=== PATIENT | male | born 1965 | race Caucasian/White ===

== ENCOUNTER 2017-10-18 16:30 | Inpatient (IN) | payer BC ==
[2017-10-18] MEDS ORDERED: ASPIRIN PO SCH (18:00)
[2017-10-18 18:59] LABS: BASOPHILS % (AUTO) 0.3 % (0.2-1.0); EOSINOPHILS # (AUTO) 0.1 x10^3/uL (0.0-0.2); EOSINOPHILS % (AUTO) 0.8 % (0.9-2.9); HEMATOCRIT 43.6 % (42.0-54.0); HEMOGLOBIN 14.9 g/dL (13.5-18.0); LYMPHOCYTES # (AUTO) 1.3 X10^3/uL (1.3-2.9); MEAN CORPUSCULAR HEMOGLOBIN 29.5 pg (27.0-34.0); MEAN CORPUSCULAR HGB CONC 34.2 g/dL (33.0-35.0); MEAN CORPUSCULAR VOLUME 86.4 fL (80.0-100.0); MEAN PLATELET VOLUME 7.1 fL (7.4-11.0); MONOCYTES # (AUTO) 0.5 x10^3/uL (0.3-0.8); MONOCYTES % (AUTO) 3.8 % (0.0-13.0); NEUTROPHILS # (AUTO) 11.4 x10^3/uL (2.2-4.8); NEUTROPHILS % (AUTO) 85.1 % (42.0-75.0); PLATELET COUNT 433 X10^3/uL (150.0-450.0); RED BLOOD COUNT 5.05 X10^6/uL (4.7-6.0); RED CELL DISTRIBUTION WIDTH 13.9 % (11.6-16.5); WHITE BLOOD COUNT 13.4 X10^3/uL (3.6-10.0)
[2017-10-18 19:06] LABS: ABG BASE EXCESS 0.8 mmol/L (-2.0-2.0); ABG HCO3 24.2 mmol/L (22-26)
[2017-10-18 19:06] LABS: BLOOD UREA NITROGEN 12 mg/dL (7-18); CHLORIDE 105 mmol/L (98-107); CREATININE 1.29 mg/dL (0.70-1.30); SODIUM 144 mmol/L (136-145); eGFR BLACK RACES > 60 (>60); eGFR NON BLACK RACES > 60 (>60)
[2017-10-18 19:11] LABS: ALANINE AMINOTRANSFERASE 70 Units/L (12-78); ALKALINE PHOSPHATASE 77 Units/L (46-116); ASPARTATE AMINO TRANSFERASE 45 Units/L (15-37); MAGNESIUM 1.9 mg/dL (1.7-2.9)
[2017-10-18 19:18] VITALS: BMI 32.1
[2017-10-18] MEDS ORDERED: POTASSIUM CHLORIDE LIQ 20 MEQ UDC PO PRN (19:20)
[2017-10-18] MEDS ORDERED: K-LYTE EFFERVESCENT PO PRN (19:20)
[2017-10-18] MEDS ORDERED: K-RIDER 10 MEQ/NS 100 ML 10 MEQ/100 ML BAG IV PRN (19:20)
[2017-10-18] MEDS ORDERED: POTASSIUM CHL 40 MEQ/NS 0.45% 500 ML IV PRN (19:20)
[2017-10-18] MEDS ORDERED: MAG-OX TAB PO PRN (19:20)
[2017-10-18] MEDS ORDERED: MAGNESIUM SULFATE 1 GM/100 mL PREMIX 1 GM/100 ML BAG IV PRN (19:20)
[2017-10-18 19:40] LABS: CKMB % 0.6 % (<4); CREATINE KINASE MB 3.1 ng/mL (0-4.0); TROPONIN I 0.18 ng/mL (0-1.5)
[2017-10-18] MEDS ORDERED: NS 1/2 1000 ML IV 1,000 ML IV SCH (20:00)
[2017-10-18] MEDS ORDERED: METHOCARBAMOL PO PRN (20:05)
--- NOTE | 2017-10-18 20:07 | RAD ---
PA and lateral chest. Indication: Productive cough with fever Comparison: None available. Findings: There is moderate increased bilateral peribronchial thickening and interstitial opacities m ost severely affecting the central lungs, given reported history of fever and productive cough this l ikely represents a interstitial pneumonitis/atypical pneumonia. Interstitial edema can have a similar appearance however felt less likely given reported patient history. No pleural effusion or pneumothorax. No acute osseous abnormality. Heart size is borderline enlarged. Impression: See above. Reported By:
[2017-10-18] MEDS ORDERED: LR 1000 ML IV 1,000 ML IV SCH (20:15)
[2017-10-18] MEDS ORDERED: LASIX IVP ONE (20:40)
[2017-10-18] MEDS ORDERED: MIRALAX POWDER (1 DOSE 17GM) PO PRN (20:47)
[2017-10-18] MEDS ORDERED: METFORMIN HCL 750 MG PO SCH (21:00)
[2017-10-18] MEDS ORDERED: TESTOSTERONE TOP SCH (21:00)
[2017-10-18] MEDS: LEVAQUIN PREMIX IV 750 MG 750 MG/150 ML BAG IV SCH (21:19)
[2017-10-18] MEDS: TOPAMAX TAB 100 MG PO SCH (21:19)
[2017-10-18] MEDS: COREG TAB 12.5 MG PO SCH (21:19)
[2017-10-18] MEDS: COLACE CAP 100 MG PO SCH (21:20)
[2017-10-18] MEDS: ZOSYN VIAL 4.5 GM 4.5 GM in NS 100 ML IV + SPIKE MINIBAG* 100 ML IV SCH (21:20)
[2017-10-18] MEDS: JANUVIA PO SCH (21:23)
[2017-10-18] MEDS: NORVASC TAB 10 MG PO SCH (21:26)
[2017-10-18] MEDS: FLONASE NASAL SPRAY ENOSTRIL SCH (21:31)
[2017-10-18] MEDS: PULMICORT NEB TX 0.5 MG NEB SCH (21:50)
[2017-10-18] MEDS: DUONEB 0.5 MG/3 MG NEB SCH (21:50)
[2017-10-18] MEDS ORDERED: TUSSIONEX PENNKINETIC SUSP PO PRN (22:01)
[2017-10-18] MEDS: POTASSIUM CHL 60 MEQ/NS 0.45% 500 ML IV PRN (23:00)
[2017-10-19 00:52] LABS: CKMB % 0.5 % (<4); CREATINE KINASE MB 2.4 ng/mL (0-4.0); TROPONIN I 0.21 ng/mL (0-1.5)
[2017-10-19] MEDS: ZOSYN VIAL 4.5 GM 4.5 GM in NS 100 ML IV + SPIKE MINIBAG* 100 ML IV SCH ×3 (00:54→14:04)
[2017-10-19] MEDS: DUONEB 0.5 MG/3 MG NEB SCH ×3 (01:00→08:54)
[2017-10-19 06:49] LABS: CKMB % 0.6 % (<4); CREATINE KINASE MB 2.5 ng/mL (0-4.0); TROPONIN I 0.18 ng/mL (0-1.5)
[2017-10-19 06:55] LABS: CHOL/HDL RATIO 6.3 (0.0-5.0)
[2017-10-19] MEDS: COREG TAB 12.5 MG PO SCH (08:44)
[2017-10-19] MEDS: JANUVIA PO SCH (08:45)
[2017-10-19] MEDS: NORVASC TAB 10 MG PO SCH (08:45)
[2017-10-19] MEDS: TOPAMAX TAB 100 MG PO SCH (08:46)
[2017-10-19] MEDS: LEVAQUIN PREMIX IV 750 MG 750 MG/150 ML BAG IV SCH (08:46)
[2017-10-19] MEDS: PULMICORT NEB TX 0.5 MG NEB SCH (08:54)
[2017-10-19] MEDS ORDERED: ARIMIDEX PO SCH (09:00)
[2017-10-19] MEDS ORDERED: HYDROCHLOROTHIAZIDE 12.5 MG CAP PO SCH (09:00)
[2017-10-19] MEDS ORDERED: LIPITOR TAB 40 MG PO SCH (09:00)
[2017-10-19] MEDS ORDERED: COZAAR PO SCH (09:00)
[2017-10-19] MEDS: FLONASE NASAL SPRAY ENOSTRIL SCH ×2 (09:00→20:26)
[2017-10-19] MEDS ORDERED: ASPIRIN PO SCH (09:00)
[2017-10-19] MEDS ORDERED: COREG TAB 12.5 MG PO SCH (09:09)
[2017-10-19] MEDS ORDERED: COREG TAB 25 MG PO SCH (10:00)
[2017-10-19] MEDS: LASIX IVP SCH ×2 (12:23→20:27)
[2017-10-19] MEDS: POTASSIUM CHL 60 MEQ/NS 0.45% 500 ML IV PRN (14:03)
[2017-10-19] MEDS ORDERED: NEURONTIN CAP 400 MG PO PRN (14:23)
[2017-10-19] MEDS ORDERED: MILK OF MAGNESIA PO PRN (14:23)
[2017-10-19] MEDS ORDERED: ULTRAM PO PRN (14:23)
[2017-10-19] MEDS: COLACE CAP 100 MG PO SCH (20:26)
[2017-10-19 20:55] VITALS: BP 139/98
[2017-10-19] MEDS ORDERED: GLUCOPHAGE XR PO SCH (21:00)
== END 2017-10-19 21:50 | disposition home or self-care (01) | DRG 195 ==
LOC: MED/SURG 16:30 → UNDOADMIN 16:30 → MED/SURG 18:15
PROVIDERS: ADMIT Obstetrics & Gynecology Obstetrics; ATTEND Obstetrics & Gynecology Obstetrics
DX: J18.8 Other pneumonia, unspecified organism (principal); R94.31 Abnormal electrocardiogram [ECG] [EKG]; R06.02 Shortness of breath; I10 Essential (primary) hypertension; R73.09 Other abnormal glucose
CPT/HCPCS: 36415; 36600; 71020; 80053; 80061; 82550; 82553; 82803; 83735; 84132; 84484; 85025; 87040; 87205; 93005; 93010; 93306; 94640; 94760; A4216; A4222; S0170; J1940; J1956; J2543; J7120; J7620; J7626